=== PATIENT | female | born 1990 | race African-American/Black ===

== ENCOUNTER 2021-01-25 13:21 | Emergency (ER) | payer OTHER ==
[~2021-01-25] VITALS: Ht 160 cm; Wt 63.5 kg
[~2021-01-25 13:21] MED LIST: NOHOMEMEDICATIONS
[2021-01-25 16:15] VITALS: BP 107/71
--- NOTE | 2021-01-26 09:33 | EKG ---
[place] [address] [facility] [place] [address] ELECTROCARDIOGRAM REPORT Name: LETICIA CHAPMAN [facility] #: [facility] [id number] Admission: 01/25/21 Attend Phys: Discharge: 01/25/21 Date of : [birth year] Report #: [id number] [facility] ED Test Date: 2021-01-25 Test Time: 14:27:50 Pat Name: LETICIA CHAPMAN Department: Room: Gender: F Editor Publications: UNKNOWN : 1990 Requested By: Trevin Borges Order Number: [id number] MD: Ari Zarate Measurements Intervals [place] Rate: 71 P: 13 NM: 148 QRS: -22 QRSD: 96 T: 24 QT: 402 QTc: 437 Interpretive Statements Sinus rhythm Borderline left axis deviation No previous ECG available for comparison Electronically Signed On 01-26-2021 9:33:36 CDT by Ari Zarate [email or web address] <ELECTRONICALLY SIGNED> By: Ari Zarate MD, [facility] 01/26/21 0933 1427 1427 Ari Zarate MD, FACC /EPI
== END 2021-01-25 16:16 | disposition home or self-care (01) ==
LOC: ER 13:21
DX: R51.9 Headache, unspecified (principal); Z20.822 Contact with and (suspected) exposure to COVID-19